=== PATIENT | male | born 1950 | race Caucasian/White ===

== ENCOUNTER 2018-04-05 10:56 | Inpatient (IN) | payer MEDICARE ==
[2018-04-05] VITALS (12 sets, daily range): BP systolic 81–178; BP diastolic 61–112; PULSE 63–98; RESP 14–15; TEMP 96.6–97.9; O2SAT 97–100
[~2018-04-05] VITALS: Ht 180.3 cm; Wt 100.1 kg
[2018-04-05 11:18] LABS: AUTOMATED NEUTROPHIL # 7.6 TH/MM3 (1.8-7.7); BASOPHIL # 0.1 TH/MM3 (0-0.2); BASOPHIL % 0.8 % (0.0-2.0); EOSINOPHIL # 0.5 TH/MM3 (0-0.4); EOSINOPHIL % 3.3 % (0.0-4.0); HEMATOCRIT 47.2 % (39.0-51.0); LYMPH % 33.4 % (9.0-44.0); LYMPHOCYTE # 4.6 TH/MM3 (1.0-4.8); MEAN CELL VOLUME 87.2 FL (80.0-100.0); MEAN CORPUSCULAR HEMOGLOBIN 29.5 PG (27.0-34.0); MEAN CORPUSCULAR HGB CONC 33.8 % (32.0-36.0); MEAN PLATELET VOLUME 7.1 FL (7.0-11.0); MONO % 7.7 % (0.0-8.0); MONOCYTE # 1.1 TH/MM3 (0-0.9); NEUT % 54.8 % (16.0-70.0); PLATELET COUNT 416 TH/MM3 (150-450); RED BLOOD COUNT 5.41 MIL/MM3 (4.50-5.90); RED CELL DISTRIBUTION WIDTH 13.4 % (11.6-17.2); WHITE BLOOD COUNT 13.8 TH/MM3 (4.0-11.0)
[2018-04-05 11:26] LABS: INTERNATIONAL NORMALIZED RATIO 1.2 RATIO; PROTHROMBIN TIME - PATIENT 12.5 SEC (9.8-11.6)
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
[2018-04-05] MEDS ORDERED: IOHEXOL 350 MG/ML 10 ML VIAL (for RAD DIAG) IVCONTRAST ONE (11:29)
[2018-04-05] MEDS ORDERED: Post-op Orders (for Pharmacy) XX ONE (11:30)
[2018-04-05] MEDS ORDERED: fentaNYL DRIP 250 ML IV PRN (11:30)
[2018-04-05] MEDS ORDERED: NALOXONE HCL 0.4 MG/ML AMP IV PUSH PRN (11:30)
[2018-04-05] MEDS ORDERED: SODIUM CHLORIDE 0.9% FLUSH 10 ML FLUSH IV FLUSH PRN (11:30)
[2018-04-05] MEDS ORDERED: PROPOFOL 1000 MG/100 ML INJ 100 ML IV PRN (11:30)
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
[2018-04-05] MEDS ORDERED: METOPROLOL TARTRATE 5 MG/5 ML VIAL ONE (12:22)
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
[2018-04-05] MEDS ORDERED: 3% SALINE INJ 500 ML IV SCH (13:45)
[2018-04-05] MEDS ORDERED: METOPROLOL TARTRATE 5 MG/5 ML VIAL IV PUSH SCH (14:00)
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
[2018-04-05] MEDS ORDERED: METOPROLOL TARTRATE 5 MG/5 ML VIAL IV PUSH ONE (14:30)
[2018-04-05] MEDS: PANTOPRAZOLE SODIUM 40 MG VIAL IV PUSH SCH (14:59)
[2018-04-05] MEDS: PROPOFOL 1000 MG/100 ML INJ 100 ML IV PRN ×2 (14:59→20:45)
[2018-04-05] MEDS: SODIUM CHLOR 0.9% 1000 ML INJ 1,000 ML IV SCH ×2 (15:00→21:47)
[2018-04-05] MEDS: levETIRAcetam INJ 500 MG in SODIUM CHLORIDE 0.9% INJ 100 ML IV SCH ×2 (15:00→21:48)
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
--- NOTE | 2018-04-05 15:20 | RADRPT ---
EXAM DATE: 04/05/2018 3:02 PM EDT AGE/SEX: 68 years / Male INDICATIONS: Post central line placement. CLINICAL DATA: This is the patient's subsequent encounter. Patient reports that signs and symptoms h ave been present for 1 day and indicates a pain score of Nonresponsive. MEDICAL/SURGICAL HISTORY: Non-responsive. Non-responsive. COMPARISON: [facility] – [place], CHEST SINGLE AP, 04/05/2018. . FINDINGS: Endotracheal tubes in good position. The nasogastric tubes in good position. There is a new left subc lavian central line. The tip of the line is misdirected and projects up over the left neck. No pneumothorax is identified. The lungs are clear. The visualized bony structures are grossly intact. CONCLUSION: The left subclavian line is misdirected and projects up over the left neck. The tip is likely within the left internal jugular vein. Electronically signed by: Grey Castaneda MD 04/05/2018 3:19 PM EDT
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
[2018-04-05] MEDS: NOREPINEPHRINE INJ 4 MG in SODIUM CHLOR 0.9% 250 ML INJ 250 ML IV PRN (18:00)
[2018-04-05] MEDS ORDERED: NOREPINEPHRINE 4 MG/4 ML AMP ONE (18:51)
[2018-04-05 18:58] LABS: HEMATOCRIT 33.6 % (39.0-51.0); HEMOGLOBIN 11.5 GM/DL (13.0-17.0)
[2018-04-05] MEDS ORDERED: SODIUM CHLOR 0.9% 1000 ML INJ 2,000 ML IV ONE (19:00)
[2018-04-05] MEDS: CHLORHEXIDINE 0.12% (ORAL KIT) 15 ML CUP OROPHARYNG SCH (20:47)
--- NOTE | 2018-04-05 21:37 | RADRPT ---
EXAM DATE: 04/05/2018 9:16 PM EDT AGE/SEX: 68 years / Male INDICATIONS: Mental status change. CLINICAL DATA: This is the patient's initial encounter. Patient reports that signs and symptoms have been present for 1 day and indicates a pain score of Nonresponsive. MEDICAL/SURGICAL HISTORY: None. None. RADIATION DOSE: 52.38 CTDI (mGy) COMPARISON: [facility] – [place], CT BRAIN W/O CONTRAST, 04/05/2018. . TECHNIQUE: CT of the head without contrast. Using automated exposure control and adjustment of the mA and/or kV according to patient size, radiation dose was kept as low as reasonably achievable to ob tain optimal diagnostic quality images. DICOM format image data is available electronically for revi ew and comparison. FINDINGS: There is a fracture of the right parietal bone and right occipital bone as well as a mildly displaced fracture of the right temporal bone with fluid or hemorrhage in the middle ear cavity. Fracture exte nds anteriorly into right maxilla. There is fluid in the sphenoid sinus and right maxillary sinus. There is scattered subarachnoid hemorrhage over both convexities, increased slightly on the right exa m from earlier today. Subcentimeter hemorrhagic contusions again seen in both temporal lobes and arou nd the left sylvian fissure. Subdural fluid anteriorly measures up to about 7 mm in thickness which i s minimally increased from exam earlier today. There is no significant mass effect or midline shift. Right frontal pressure monitor present. CONCLUSION: 1. Slight increase in subarachnoid hemorrhage over the right convexity. Small hemorrhagic contusions bilaterally as above. Slight increase in anterior subdural fluid. No significant mass effect or shif t. Fractures as above. Electronically signed by: Han Lane MD 04/05/2018 9:36 PM EDT
[2018-04-05] MEDS: SODIUM CHLORIDE 0.9% FLUSH 10 ML FLUSH IV FLUSH SCH (21:48)
[2018-04-06] VITALS (17 sets, daily range): BP systolic 91–127; BP diastolic 57–71; PULSE 51–102; RESP 14–18; TEMP 96–98.5; O2SAT 99–100
[2018-04-06] MEDS: PROPOFOL 1000 MG/100 ML INJ 100 ML IV PRN ×6 (00:36→20:36)
[2018-04-06] MEDS ORDERED: SODIUM CHLORIDE 23.4% INJ 240 MEQ in SYRINGE/BAG 1 EA IV ONE ×2 (02:00→09:45)
[2018-04-06] MEDS: NOREPINEPHRINE INJ 4 MG in SODIUM CHLOR 0.9% 250 ML INJ 250 ML IV PRN ×2 (04:37→12:48)
[2018-04-06] MEDS: fentaNYL DRIP 250 ML IV PRN ×2 (06:15→16:31)
[2018-04-06 06:33] LABS: AUTOMATED NEUTROPHIL # 11.3 TH/MM3 (1.8-7.7); BASOPHIL % 0.1 % (0.0-2.0); EOSINOPHIL % 0.3 % (0.0-4.0); HEMATOCRIT 33.6 % (39.0-51.0); HEMOGLOBIN 11.2 GM/DL (13.0-17.0); LYMPH % 9.6 % (9.0-44.0); LYMPHOCYTE # 1.3 TH/MM3 (1.0-4.8); MEAN CELL VOLUME 88.3 FL (80.0-100.0); MEAN CORPUSCULAR HEMOGLOBIN 29.4 PG (27.0-34.0); MEAN CORPUSCULAR HGB CONC 33.4 % (32.0-36.0); MEAN PLATELET VOLUME 7.2 FL (7.0-11.0); MONO % 5.6 % (0.0-8.0); MONOCYTE # 0.7 TH/MM3 (0-0.9); NEUT % 84.4 % (16.0-70.0); PLATELET COUNT 237 TH/MM3 (150-450); RED BLOOD COUNT 3.81 MIL/MM3 (4.50-5.90); RED CELL DISTRIBUTION WIDTH 13.5 % (11.6-17.2); WHITE BLOOD COUNT 13.4 TH/MM3 (4.0-11.0)
[2018-04-06 07:16] LABS: ALBUMIN 2.5 GM/DL (3.4-5.0); BICARBONATE 19.4 MEQ/L (21.0-32.0); CREATININE 1.41 MG/DL (0.60-1.30); DIRECT BILIRUBIN ADULT 0.5 MG/DL (0.0-0.2); INDIRECT BILIRUBIN 1.8 MG/DL (0.0-0.8); TOTAL BILIRUBIN ADULT 2.3 MG/DL (0.2-1.0)
[2018-04-06 07:29] LABS: CALCIUM 7.2 MG/DL (8.5-10.1); CALCIUM-PROTEIN CORRECTED 8.4 MG/DL (8.5-10.1); TOTAL PROTEIN 4.9 GM/DL (6.4-8.2)
[2018-04-06] MEDS ORDERED: SENNOSIDES 8.6 MG TAB PO PRN (08:00)
[2018-04-06] MEDS ORDERED: BISACODYL 10 MG SUPP RECTAL PRN (08:00)
[2018-04-06] MEDS ORDERED: LACTULOSE SYRUP 20 GM/30 ML CUP PO PRN (08:00)
[2018-04-06] MEDS: SODIUM CHLOR 0.9% 1000 ML INJ 1,000 ML IV SCH ×2 (08:19→17:26)
[2018-04-06] MEDS: CHLORHEXIDINE 0.12% (ORAL KIT) 15 ML CUP OROPHARYNG SCH ×2 (08:19→20:00)
[2018-04-06] MEDS: RESP: ALBUTEROL 2.5 MG/IPRATROPIUM 0.5 MG NEB (SCH) NEB ×3 (08:46→22:00)
[2018-04-06] MEDS: SODIUM CHLORIDE 0.9% FLUSH 10 ML FLUSH IV FLUSH SCH ×2 (09:00→21:00)
[2018-04-06] MEDS: levETIRAcetam INJ 500 MG in SODIUM CHLORIDE 0.9% INJ 100 ML IV SCH ×2 (09:29→20:36)
[2018-04-06] MEDS: DOCUSATE SODIUM 50 MG/SENNA 8.6 MG TAB PO SCH ×2 (09:29→20:36)
[2018-04-06] MEDS: MAGNESIUM HYDROXIDE SUSP 30 ML CUP PO SCH ×2 (09:29→20:36)
[2018-04-06] MEDS: PANTOPRAZOLE SODIUM 40 MG VIAL IV PUSH SCH (12:26)
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
[2018-04-06] MEDS ORDERED: 3% SALINE INJ 500 ML IV SCH (13:45)
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
[2018-04-06] MEDS ORDERED: MIDAZOLAM HCL 5 MG/ML VIAL (1 ML) ONE (16:28)
[2018-04-06] MEDS ORDERED: MIDAZOLAM HCL 5 MG/ML VIAL (1 ML) IV PUSH ONE (17:45)
[2018-04-06] MEDS: MIDAZOLAM 50 MG/NS 50 ML DRIP Premix IV PRN ×2 (17:51→21:30)
--- NOTE | 2018-04-06 22:24 | PD.OP ---
Operative Report Date of Surgery: Apr 06, 2018 Preoperative Diagnosis: (1) Traumatic brain injury Traumatic brain injury Postoperative Diagnosis: (1) Traumatic brain injury Traumatic brain injury Procedure: Right frontal twist drill for ventriculostomy placement Anesthesia: Intravenous sedation 1% Xylocaine local anesthetic Surgeon: Isaac Gibbs Ceramic Painter(s): None Operation and Findings: Indications: Traumatic brain injury with increasing intracranial pressure The procedure was performed in the surgical intensive care unit. The procedure, risks, and possible complications were fully explained prior to the procedure and consent obtained and witnessed. Appropriate timeout procedure was performed with all personnel present and in agreement The patient was placed in supine position with the head and neck in neutral position and the head of the bed elevated approximately 20. The right frontal region was shaved with clippers and sterilely prepped and draped. One percent Xylocaine without epinephrine was used for local infiltration over the small incision site which was made approximately 9-10 cm above the right supraorbital rim, approximately 3-1/2 to 4 cm lateral to the midline, in the mid pupillary line just anterior to the coronal suture. The hand drill was used to make a single twist drill opening in the cranium and the dura was perforated with the trocar. The Codman Bactiseal ventriculostomy catheter was advanced to a depth of 6-7 cm intracranial in a single pass with good return of spinal fluid. Opening pressure was 20 centimeter water The catheter was tunneled to the posterior frontal region with a trocar and secured to the skin with 3-0 nylon suture which was also used to close the small incision. A sterile bactericidal dressing was applied The catheter was connected to the drainage reservoir, and there was good drainage of fluid. The patient's neurologic exam remained stable following the procedure No specimen was sent There was no significant bleeding Isaac Gibbs MD Apr 06, 2018 22:24
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
--- NOTE | 2018-04-06 22:45 | PD.OP ---
Operative Report Date of Surgery: Apr 05, 2018 Preoperative Diagnosis: (1) Traumatic brain injury (2) Occipital scalp laceration Traumatic brain injury Left parieto-occipital scalp laceration Postoperative Diagnosis: (1) Traumatic brain injury (2) Occipital scalp laceration Traumatic brain injury Left parieto-occipital scalp laceration Procedure: 1. Right frontal twist drill for intracranial pressure monitor placement Repair greater than 10 cm right parietal-occipital scalp laceration Anesthesia: Intravenous sedation 1% Xylocaine local anesthetic Surgeon: Isaac Gibbs Puncher And Fastener(s): None Operation and Findings: The procedure was performed in the surgical intensive care unit. Appropriate timeout procedure was performed with all personnel present and in agreement The patient was given intravenous sedation during the procedure. The head of the bed was elevated 20 with the head and neck in neutral position. The right frontal area was shaved with clippers and sterilely prepped and draped. 1% Xylocaine with epinephrine was used for local infiltration over the small incision site which was made in the right frontal region approximately 1 cm anterior to the coronal suture in the mid pupillary line and carried sharply down to the cranium. The hand drill was used to place a single twist drill opening in the cranium and the dura was perforated with the 18-gauge spinal needle. The ICP bolt was secured to the cranium. The transducer was zeroed and placed intracranially and secured to the bolt. The patient's initial ICP was less than 10 mm water with good waveform. A sterile dressing was applied There is no significant bleeding Next, the parieto-occipital scalp laceration was cleaned of any debris and irrigated with saline irrigation and the surrounding scalp cleaned with Betadine. The laceration extended to the periosteum near the central part of the laceration. No cerebrospinal fluid draining was noted. The laceration was repaired with piyush. The patient's neurologic exam remained stable following the procedure. Isaac Gibbs MD Apr 06, 2018 22:45
[2018-04-07] VITALS (19 sets, daily range): BP systolic 111–129; BP diastolic 51–69; PULSE 71–97; RESP 18; TEMP 97.5–99.7; O2SAT 98–100
[2018-04-07] MEDS: PROPOFOL 1000 MG/100 ML INJ 100 ML IV PRN ×7 (00:34→21:33)
[2018-04-07] MEDS: NOREPINEPHRINE INJ 4 MG in SODIUM CHLOR 0.9% 250 ML INJ 250 ML IV PRN ×3 (00:51→21:23)
[2018-04-07] MEDS: MIDAZOLAM 50 MG/NS 50 ML DRIP Premix IV PRN ×5 (02:05→20:44)
[2018-04-07] MEDS: fentaNYL DRIP 250 ML IV PRN ×3 (03:34→22:17)
[2018-04-07] MEDS: RESP: ALBUTEROL 2.5 MG/IPRATROPIUM 0.5 MG NEB (SCH) NEB ×4 (04:00→20:25)
[2018-04-07] MEDS: SODIUM CHLOR 0.9% 1000 ML INJ 1,000 ML IV SCH (05:05)
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
[2018-04-07 05:39] LABS: AUTOMATED NEUTROPHIL # 10.5 TH/MM3 (1.8-7.7); BASOPHIL % 0.1 % (0.0-2.0); EOSINOPHIL % 0.2 % (0.0-4.0); HEMATOCRIT 28.3 % (39.0-51.0); HEMOGLOBIN 9.5 GM/DL (13.0-17.0); LYMPH % 8.4 % (9.0-44.0); MEAN CELL VOLUME 89.2 FL (80.0-100.0); MEAN CORPUSCULAR HGB CONC 33.7 % (32.0-36.0); MEAN PLATELET VOLUME 7.7 FL (7.0-11.0); MONO % 5.1 % (0.0-8.0); MONOCYTE # 0.6 TH/MM3 (0-0.9); NEUT % 86.2 % (16.0-70.0); PLATELET COUNT 195 TH/MM3 (150-450); RED BLOOD COUNT 3.17 MIL/MM3 (4.50-5.90); RED CELL DISTRIBUTION WIDTH 14.2 % (11.6-17.2); WHITE BLOOD COUNT 12.2 TH/MM3 (4.0-11.0)
[2018-04-07 05:59] LABS: ALBUMIN 2.2 GM/DL (3.4-5.0); BICARBONATE 17.7 MEQ/L (21.0-32.0); CALCIUM 7.1 MG/DL (8.5-10.1); CALCIUM-PROTEIN CORRECTED 8.4 MG/DL (8.5-10.1); CREATININE 1.19 MG/DL (0.60-1.30); TOTAL BILIRUBIN ADULT 1.4 MG/DL (0.2-1.0); TOTAL PROTEIN 4.8 GM/DL (6.4-8.2)
[2018-04-07] MEDS: levETIRAcetam INJ 500 MG in SODIUM CHLORIDE 0.9% INJ 100 ML IV SCH ×2 (07:57→20:41)
[2018-04-07] MEDS: CHLORHEXIDINE 0.12% (ORAL KIT) 15 ML CUP OROPHARYNG SCH ×2 (07:57→20:42)
[2018-04-07] MEDS: MAGNESIUM HYDROXIDE SUSP 30 ML CUP PO SCH ×2 (07:57→20:42)
[2018-04-07] MEDS: SODIUM CHLORIDE 0.9% FLUSH 10 ML FLUSH IV FLUSH SCH ×2 (07:58→20:42)
[2018-04-07] MEDS: DOCUSATE SODIUM 50 MG/SENNA 8.6 MG TAB PO SCH ×2 (07:58→20:42)
[2018-04-07] MEDS: SODIUM CHLOR 0.45% 1000 ML INJ 1,000 ML IV SCH ×2 (09:45→23:12)
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
--- NOTE | 2018-04-07 10:33 | OTSOAPIP ---
TIME SESSION COMPLETED: AM TREATMENT TIME: 0 MINS. CHART REVIEWED. LATE ENTRY 04/06/18 INTERDISCIPLINARY COMMUNICATION: ORDERS RECEIVED, CHART REVIEWED. NURSING HELD OCCUPATIONAL THERAPY DUE TO HIGH ICP. WILL CHECK BACK TOMORROW Therapist: ARNALDO PATRICK OTR/Linus Signature on file
[2018-04-07] MEDS: PANTOPRAZOLE SODIUM 40 MG VIAL IV PUSH SCH (12:04)
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
--- NOTE | 2018-04-07 16:49 | OTSOAPIP ---
TIME SESSION COMPLETED: 1200 TREATMENT TIME: 0 MINS. CHART REVIEWED. ATTEMPTED TO SEE FOR OT HOWEVER NURSE REQUESTED TO DEFER ANY STIMULATION DUE TO ICP. Therapist: BLAYNE LIM OT/L Signature on file
[2018-04-08] VITALS (19 sets, daily range): BP systolic 103–124; BP diastolic 50–85; PULSE 86–96; RESP 18; TEMP 97.9–98.8; O2SAT 94–100
[2018-04-08] MEDS: PROPOFOL 1000 MG/100 ML INJ 100 ML IV PRN ×7 (01:21→23:33)
[2018-04-08] MEDS: MIDAZOLAM 50 MG/NS 50 ML DRIP Premix IV PRN ×5 (02:00→19:49)
[2018-04-08] MEDS: RESP: ALBUTEROL 2.5 MG/IPRATROPIUM 0.5 MG NEB (SCH) NEB ×4 (03:53→20:03)
[2018-04-08 06:21] LABS: AUTOMATED NEUTROPHIL # 9.8 TH/MM3 (1.8-7.7); BASOPHIL % 0.3 % (0.0-2.0); EOSINOPHIL # 0.2 TH/MM3 (0-0.4); EOSINOPHIL % 1.7 % (0.0-4.0); HEMATOCRIT 25.1 % (39.0-51.0); HEMOGLOBIN 8.4 GM/DL (13.0-17.0); LYMPH % 8.2 % (9.0-44.0); LYMPHOCYTE # 0.9 TH/MM3 (1.0-4.8); MEAN CELL VOLUME 88.4 FL (80.0-100.0); MEAN CORPUSCULAR HEMOGLOBIN 29.8 PG (27.0-34.0); MEAN CORPUSCULAR HGB CONC 33.7 % (32.0-36.0); MEAN PLATELET VOLUME 7.5 FL (7.0-11.0); MONO % 5.2 % (0.0-8.0); MONOCYTE # 0.6 TH/MM3 (0-0.9); NEUT % 84.6 % (16.0-70.0); PLATELET COUNT 165 TH/MM3 (150-450); RED BLOOD COUNT 2.84 MIL/MM3 (4.50-5.90); RED CELL DISTRIBUTION WIDTH 14.6 % (11.6-17.2); WHITE BLOOD COUNT 11.6 TH/MM3 (4.0-11.0)
--- NOTE | 2018-04-08 06:30 | RADRPT ---
EXAM DATE: 04/08/2018 5:29 AM EDT AGE/SEX: 68 years / Male INDICATIONS: Short of breath. CLINICAL DATA: This is the patient's initial encounter. Patient reports that signs and symptoms have been present for 4 - 6 days and indicates a pain score of Nonresponsive. MEDICAL/SURGICAL HISTORY: Non-responsive. Non-responsive. COMPARISON: C, CHEST SINGLE AP, 04/07/2018. . FINDINGS: The endotracheal tube, nasogastric tube are both in good position. There is a moderate size right ple ural effusion. Mild perihilar vascular congestion. No visible pneumothorax. CONCLUSION: Persistent right hemidiaphragm suspicious for pleural effusion. ET tube in good position. Electronically signed by: Jon Coats MD 04/08/2018 6:29 AM EDT
[2018-04-08 06:48] LABS: ALBUMIN 1.9 GM/DL (3.4-5.0); BICARBONATE 20.4 MEQ/L (21.0-32.0); CREATININE 1.14 MG/DL (0.60-1.30)
[2018-04-08 06:52] LABS: CALCIUM-PROTEIN CORRECTED 8.2 MG/DL (8.5-10.1); TOTAL BILIRUBIN ADULT 1.3 MG/DL (0.2-1.0); TOTAL PROTEIN 4.8 GM/DL (6.4-8.2)
[2018-04-08] MEDS: CHLORHEXIDINE 0.12% (ORAL KIT) 15 ML CUP OROPHARYNG SCH ×2 (08:16→21:39)
[2018-04-08] MEDS: levETIRAcetam INJ 500 MG in SODIUM CHLORIDE 0.9% INJ 100 ML IV SCH ×2 (08:16→21:43)
[2018-04-08] MEDS: SODIUM CHLORIDE 0.9% FLUSH 10 ML FLUSH IV FLUSH SCH ×2 (08:16→21:40)
[2018-04-08] MEDS: MAGNESIUM HYDROXIDE SUSP 30 ML CUP PO SCH ×2 (08:16→21:43)
[2018-04-08] MEDS: DOCUSATE SODIUM 50 MG/SENNA 8.6 MG TAB PO SCH ×2 (08:17→21:43)
[2018-04-08] MEDS: fentaNYL DRIP 250 ML IV PRN ×2 (08:17→18:00)
[2018-04-08] MEDS: NOREPINEPHRINE INJ 4 MG in SODIUM CHLOR 0.9% 250 ML INJ 250 ML IV PRN ×3 (08:18→22:02)
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
[2018-04-08] MEDS ORDERED: FUROSEMIDE 40 MG/4 ML VIAL IV PUSH ONE (09:30)
[2018-04-08] MEDS: DEXTROSE 5% IN WATE 1000ML INJ 1,000 ML IV SCH (09:30)
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
[2018-04-08] MEDS ORDERED: CHLORHEXIDINE GLUCONATE 2 % 1 PACK (2 CLOTHS)(extra cloths) TOPICAL PRN (12:30)
[2018-04-08] MEDS: PANTOPRAZOLE SODIUM 40 MG VIAL IV PUSH SCH (12:32)
[2018-04-08] MEDS ORDERED: ICU - POTASSIUM PHOSPHATE 30 MMOL/NS 250 ML IV PRN ×2 (13:00)
[2018-04-08] MEDS ORDERED: ICU - POTASSIUM CHLORIDE/AQUEOUS SOLN 20 MEQ/100 ML IVPB IV PRN (13:00)
[2018-04-08] MEDS ORDERED: ICU - MAGNESIUM SULFATE 4 GM/NS 100 ML IV PRN ×2 (13:00)
[2018-04-08] MEDS ORDERED: POTASSIUM CHLORIDE 25 MEQ EFFERVESCENT TAB PO PRN (13:00)
[2018-04-08] MEDS ORDERED: ICU - MAGNESIUM SULFATE 2 GM/NS 100 ML IV PRN ×2 (13:00)
[2018-04-08] MEDS ORDERED: ICU - MAGNESIUM OXIDE 400 MG TAB PO PRN (13:00)
[2018-04-08] MEDS ORDERED: ICU - D/C ICU ELECTROLYTE ORDERS PRN (13:00)
[2018-04-08] MEDS ORDERED: ICU - POTASSIUM PHOSPHATE MONOBASIC 500 MG TAB PO PRN (13:00)
[2018-04-08] MEDS ORDERED: ICU - SODIUM PHOSPHATE 30 MMOL/NS 250 ML IV PRN ×2 (13:00)
[2018-04-08] MEDS ORDERED: ICU - CALL ORDERING PHYSICIAN PRN (13:00)
[2018-04-08] MEDS: ICU - POTASSIUM CHLORIDE/AQUEOUS SOLN 40 MEQ/100 ML IVPB IV PRN ×2 (13:08→15:30)
--- NOTE | 2018-04-08 13:31 | RADRPT ---
EXAM DATE: 04/08/2018 11:27 AM EDT AGE/SEX: 68 years / Male INDICATIONS: Subarachnoid hemorrhage. CLINICAL DATA: This is the patient's subsequent encounter. Patient reports that signs and symptoms h ave been present for 3 days and indicates a pain score of 2/10. MEDICAL/SURGICAL HISTORY: None. None. RADIATION DOSE: 66.63 CTDI (mGy) [place] [facility] [place] [facility] [place]05/[place]. . TECHNIQUE: CT of the head without contrast. Using automated exposure control and adjustment of the mA and/or kV according to patient size, radiation dose was kept as low as reasonably achievable to ob tain optimal diagnostic quality images. DICOM format image data is available electronically for revi ew and comparison. FINDINGS: Cerebrum: There is a pressure monitor in place from the right frontal approach. There also appears t o be shunt tubing in place from the right frontal approach. The tip of this tube appears to be in the right frontal white matter. It does not extend into the ventricular system. The lateral ventricles a re narrowed but still open. The basal cisterns are narrowed but still fairly open. This appearance is unchanged. There is minimal residual subarachnoid hemorrhage seen at the left parietal lobe and arou nd the frontal lobes. This appears less prominent. There are focal areas of low density seen in the a nterior left frontal lobe and the lateral temporal lobes bilaterally likely related to contusions. Th ere does appear to be a bright focus of density seen in the anterior aspect of the temporal horn of t he right lateral ventricle likely related to a small area intraventricular hemorrhage. This is unchan ged. New areas of hemorrhage are not seen. Low density subdural collections are seen over the frontal lobes bilaterally. There is some air within the anterior right frontal lobe. Posterior Fossa: There is increased density along the posterior right posterior fossa. This could be related to a subdural or epidural hemorrhage in this region. This is not an unexpected finding given the right-sided skull fractures. This is unchanged. The cerebellum and brainstem are intact. The 4t h ventricle is midline. The cerebellopontine angle is unremarkable. Extracranial: The visualized portion of the orbits is intact. There is increased density in the sinu ses. Skull: Again noted is fracturing of the right occipital bone, right middle cranial fossa floor and r ight petrous temporal bone. CONCLUSION: 1. Stable to less prominent subarachnoid hemorrhage. 2. Stable small interventricular hemorrhage at the temporal horn of the right lateral ventricle. 3. Focal areas of contusion in the anterior left frontal lobe and the temporal lobes bilaterally. 4. Stable extra-axial hemorrhage in the posterior aspect of the right posterior cranial fossa. 5. What appears to be a ventriculostomy tube is now in place. The tip appears to overlie the right f rontal white matter. 6. The ventricles and basal cisterns are open but narrowed. This appearance is unchanged. Electronically signed by: Michel Schwarz MD 04/08/2018 1:30 PM EDT
[2018-04-08] MEDS: MUPIROCIN 2% OINT 1 APPLIC/GM SYR NASAL SCH (21:43)
[2018-04-09] VITALS (17 sets, daily range): BP systolic 97–116; BP diastolic 55–66; PULSE 78–96; RESP 20–22; TEMP 97.2–98.8; O2SAT 93–100
[2018-04-09] MEDS: MIDAZOLAM 50 MG/NS 50 ML DRIP Premix IV PRN ×6 (00:37→21:16)
[2018-04-09] MEDS ORDERED: DEXTROSE 5% IN WATE 1000ML INJ 1,000 ML IV ONE (02:10)
[2018-04-09] MEDS: PROPOFOL 1000 MG/100 ML INJ 100 ML IV PRN ×5 (02:36→22:00)
--- NOTE | 2018-04-09 02:46 | RADRPT ---
EXAM DATE: 04/09/2018 2:40 AM EDT AGE/SEX: 68 years / Male INDICATIONS: Shortness of breath and pulmonary infiltrates. CLINICAL DATA: This is the patient's subsequent encounter. Patient reports that signs and symptoms h ave been present for 4 - 6 days and indicates a pain score of Nonresponsive. MEDICAL/SURGICAL HISTORY: None. None. [place] [facility] [place]. . FINDINGS: A single AP portable supine view of the chest was obtained and again demonstrates the endotracheal tu be in place with the tip approximately 3 to 4 cm above the leo. The nasogastric tube is again note d seen coursing through the esophagus into the stomach. Hazy perihilar and bibasilar opacities are pr esent and appear mildly increased since the prior study. The heart size appears at the upper limits o f normal. Portions of the left hemidiaphragm are obscured. CONCLUSION: 1. Interval increase in opacity especially the right lung base which could indicate pneumonia or pu lmonary edema. 2. The patient remains intubated. Electronically signed by: Chip Weston MD 04/09/2018 2:45 AM EDT
[2018-04-09] MEDS: DEXTROSE 5% IN WATE 1000ML INJ 1,000 ML IV SCH (02:51)
[2018-04-09] MEDS: VANCOMYCIN 1,000 MG/NS 250 ML IV SCH ×4 (03:15→16:31)
[2018-04-09] MEDS: RESP: ALBUTEROL 2.5 MG/IPRATROPIUM 0.5 MG NEB (SCH) NEB ×4 (03:18→20:01)
[2018-04-09] MEDS: fentaNYL DRIP 250 ML IV PRN ×2 (03:27→08:34)
[2018-04-09] MEDS: CHLORHEXIDINE GLUCONATE 2 % 1 PACK (2 CLOTHS)(taper/protocol) TOPICAL SCH (04:00)
[2018-04-09] MEDS: PIPERACIL-TAZO 3.375 GM PREMIX 50 ML IV SCH ×4 (04:27→21:16)
[2018-04-09] MEDS: NOREPINEPHRINE INJ 4 MG in SODIUM CHLOR 0.9% 250 ML INJ 250 ML IV PRN ×3 (04:31→16:29)
[2018-04-09 06:09] LABS: AUTOMATED NEUTROPHIL # 6.4 TH/MM3 (1.8-7.7); BASOPHIL % 0.3 % (0.0-2.0); EOSINOPHIL # 0.2 TH/MM3 (0-0.4); EOSINOPHIL % 3.1 % (0.0-4.0); HEMATOCRIT 24.8 % (39.0-51.0); HEMOGLOBIN 8.3 GM/DL (13.0-17.0); LYMPH % 9.3 % (9.0-44.0); LYMPHOCYTE # 0.7 TH/MM3 (1.0-4.8); MEAN CELL VOLUME 88.9 FL (80.0-100.0); MEAN CORPUSCULAR HEMOGLOBIN 29.6 PG (27.0-34.0); MEAN CORPUSCULAR HGB CONC 33.3 % (32.0-36.0); MEAN PLATELET VOLUME 7.7 FL (7.0-11.0); MONO % 3.5 % (0.0-8.0); MONOCYTE # 0.3 TH/MM3 (0-0.9); NEUT % 83.8 % (16.0-70.0); PLATELET COUNT 169 TH/MM3 (150-450); RED BLOOD COUNT 2.79 MIL/MM3 (4.50-5.90); RED CELL DISTRIBUTION WIDTH 14.7 % (11.6-17.2); WHITE BLOOD COUNT 7.7 TH/MM3 (4.0-11.0)
[2018-04-09 06:37] LABS: ALBUMIN 1.6 GM/DL (3.4-5.0); BICARBONATE 23.1 MEQ/L (21.0-32.0); CALCIUM 6.5 MG/DL (8.5-10.1); CALCIUM-PROTEIN CORRECTED 7.8 MG/DL (8.5-10.1); CREATININE 1.29 MG/DL (0.60-1.30); TOTAL BILIRUBIN ADULT 1.6 MG/DL (0.2-1.0); TOTAL PROTEIN 4.6 GM/DL (6.4-8.2)
[2018-04-09] MEDS: ICU - POTASSIUM CHLORIDE/AQUEOUS SOLN 40 MEQ/100 ML IVPB IV PRN ×2 (07:01→09:53)
[2018-04-09] MEDS: CHLORHEXIDINE 0.12% (ORAL KIT) 15 ML CUP OROPHARYNG SCH ×2 (08:00→20:00)
--- NOTE | 2018-04-09 08:03 | HHI.PR ---
Neuropsych Emotional Emotional: UnabletoAssess: Emotional, Anxious/Fearful, Depressed/Sad, Hostile/ Resentful, Irritable/Angry/Frustrate, Labile, Constricted/Blunted Behavior Behavior: Intact: Impulsive/Agitated, Unable to Asses: Behavior, Coping/ Acceptance, Cooperative w/ Treatment, Motivation, Frustration Tolerance/[place], Suicidal/Homicidal Risk Cognitive Cognitive: Unable to Asses: Cognitive, Attention/Concentration, Confused/ Orientation, Insight/Awareness, Judgement/Problem-Solving, Memory Psychosocial Psychosocial: Unable to Asses: Psychosocial, Family/Other Adjustment, Realistic Expectation, Self-Esteem/Confidence Progress Notes/Response to Tx Contents of Sessions: Adjustment, Level of Consciousness Time with Patient: 30 minutes Premorbid psychological status Premorbid Cognitive, Emotional and Behavioral Status: Unable to Assess The patient is believed to have high school years of education and a solid work history prior to this injury. The patient has unknown psychiatric difficulties , as described above. Substance abuse history appears unremarkable. Behavioral Reactions of Patient and Family/Support System: Unstable. The patients family is experiencing ongoing issues of adjustment given the nature of the injury, and this aspect of recovery will require ongoing monitoring. Emotional/Behavioral Status of Patient and Family/Support System: Unable to Assess. Pertinent issues, if appropriate to this patients clinical care, are described in detail above. Maximizing acute care outcome It is recommended that the patient be monitored for emergent behavioral impulsivity as the medical condition evolves. This patients neuropathological challenges may limit his rehabilitation potential going forward, and these challenges will require specialized therapeutic skills to maximize outcome. Additionally, the patients family is experiencing ongoing issues of adjustment given the traumatic nature of the injury, and they will need ongoing psychological assistance. At this point in the recovery process, the patient does not have cognitive capacity as the patient is unable to understand a situation and its likely consequences, nor is he able to manipulate information rationally. Cognitive capacity will be assessed throughout the recovery process. Anticipated Problems Ongoing areas of concern will include behavioral impulsivity, lack of insight and judgment, which is expected to improve with time and treatment. Presently , the patient is critically ill. Given the severity of the patient's injuries it is my clinical opinion that this patient will be unable to return to any type of productive employment for at least one year, perhaps longer and likely never. This patient is not considered safe to discharge home without supervision. Treatment Plan This clinician will continue to follow with you throughout the course of this patients critical care treatment, and I will be available to meet with the patients family/support system to facilitate their understanding and the ongoing care of their family member. The goals of neuropsychological intervention shall be both educational and supportive to the family/support system as is deemed clinically appropriate. [place] Level: I:No response-total assistance Impression 68 year old male s/p severe TBI [facility] [facility] [place] Diagnosis: (1) Major neurocognitive disorder as late effect of traumatic brain injury without behavioral disturbance Progress Note Narrative PTD 4. The patient remains neurobehaviorally unchanged, with no agitation/ restlessness. He is [place]. His ICPs are fluctuating, and he will need trach /PEG. I will follow. Pete Chaudhry PhD Apr 09, 2018 8:03 am
[2018-04-09] MEDS: MAGNESIUM HYDROXIDE SUSP 30 ML CUP PO SCH ×2 (08:34→20:00)
[2018-04-09] MEDS: MUPIROCIN 2% OINT 1 APPLIC/GM SYR NASAL SCH ×2 (08:34→21:17)
[2018-04-09] MEDS: DOCUSATE SODIUM 50 MG/SENNA 8.6 MG TAB PO SCH ×2 (08:34→21:00)
[2018-04-09] MEDS: LACTULOSE SYRUP 20 GM/30 ML CUP PO SCH (08:35)
[2018-04-09] MEDS: SODIUM CHLORIDE 0.9% FLUSH 10 ML FLUSH IV FLUSH SCH ×2 (08:35→21:17)
[2018-04-09] MEDS: levETIRAcetam INJ 500 MG in SODIUM CHLORIDE 0.9% INJ 100 ML IV SCH ×2 (08:35→21:16)
[2018-04-09 09:03] LABS: BANDS 47 % (0-6); BASOPHILS 2 % (0-2); CORRECTED NUCLEATED RBC 1 /100 WBC (0-0); DOHLE BODIES PRESENT (NONE SEEN); LYMPHOCYTES 11 % (9-44); METAMYELOCYTES 2 % (0-1); MONOCYTES 3 % (0-8); NEUTROPHIL # MANUAL DIFF 6.2 TH/MM3 (1.8-7.7); NUCLEATED RED BLOOD CELL 1 (0-0); POLYS (SEG NEUTROPHILS) 32 % (16-70)
[2018-04-09 09:04] LABS: TOXIC GRANULATION 1+ (NORMAL)
[2018-04-09] MEDS ORDERED: SODIUM CHLOR 0.9% 250 ML INJ 250 ML IV ONE (09:30)
[2018-04-09] MEDS ORDERED: BISACODYL 10 MG SUPP RECTAL ONE (09:30)
[2018-04-09] MEDS: SODIUM CHLOR 0.45% 1000 ML INJ 1,000 ML IV SCH (10:00)
[2018-04-09] MEDS: PANTOPRAZOLE SODIUM 40 MG VIAL IV PUSH SCH (11:05)
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
[2018-04-10] VITALS (16 sets, daily range): BP systolic 94–126; BP diastolic 54–67; PULSE 75–105; RESP 22–24; TEMP 97.2–99.5; O2SAT 92–100
[2018-04-10] MEDS: SODIUM CHLOR 0.45% 1000 ML INJ 1,000 ML IV SCH (02:10)
[2018-04-10] MEDS: RESP: ALBUTEROL 2.5 MG/IPRATROPIUM 0.5 MG NEB (SCH) NEB ×2 (03:02→08:21)
[2018-04-10] MEDS: PIPERACIL-TAZO 3.375 GM PREMIX 50 ML IV SCH ×4 (03:42→23:00)
[2018-04-10] MEDS: MIDAZOLAM 50 MG/NS 50 ML DRIP Premix IV PRN ×2 (03:42→08:15)
[2018-04-10] MEDS: CHLORHEXIDINE GLUCONATE 2 % 1 PACK (2 CLOTHS)(taper/protocol) TOPICAL SCH (03:43)
[2018-04-10] MEDS: VANCOMYCIN 1,000 MG/NS 250 ML IV SCH ×4 (03:43→15:08)
[2018-04-10 04:18] LABS: AUTOMATED NEUTROPHIL # 8.7 TH/MM3 (1.8-7.7); BASOPHIL % 0.4 % (0.0-2.0); EOSINOPHIL # 0.5 TH/MM3 (0-0.4); EOSINOPHIL % 4.3 % (0.0-4.0); HEMATOCRIT 30.5 % (39.0-51.0); HEMOGLOBIN 10.5 GM/DL (13.0-17.0); LYMPH % 10.3 % (9.0-44.0); LYMPHOCYTE # 1.1 TH/MM3 (1.0-4.8); MEAN CELL VOLUME 86.9 FL (80.0-100.0); MEAN CORPUSCULAR HGB CONC 34.5 % (32.0-36.0); MEAN PLATELET VOLUME 7.5 FL (7.0-11.0); MONO % 4.5 % (0.0-8.0); MONOCYTE # 0.5 TH/MM3 (0-0.9); NEUT % 80.5 % (16.0-70.0); PLATELET COUNT 176 TH/MM3 (150-450); RED BLOOD COUNT 3.51 MIL/MM3 (4.50-5.90); RED CELL DISTRIBUTION WIDTH 14.9 % (11.6-17.2); WHITE BLOOD COUNT 10.8 TH/MM3 (4.0-11.0)
[2018-04-10 04:56] LABS: ALBUMIN 1.6 GM/DL (3.4-5.0); CALCIUM 6.7 MG/DL (8.5-10.1); CALCIUM-PROTEIN CORRECTED 7.8 MG/DL (8.5-10.1); CREATININE 1.28 MG/DL (0.60-1.30); MAGNESIUM 2.3 MG/DL (1.5-2.5)
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
[2018-04-10] MEDS: PROPOFOL 1000 MG/100 ML INJ 100 ML IV PRN ×2 (06:48→08:15)
[2018-04-10] MEDS: MAGNESIUM HYDROXIDE SUSP 30 ML CUP PO SCH ×2 (07:53→20:00)
[2018-04-10] MEDS: MUPIROCIN 2% OINT 1 APPLIC/GM SYR NASAL SCH ×2 (07:53→20:42)
[2018-04-10] MEDS: LACTULOSE SYRUP 20 GM/30 ML CUP PO SCH (07:53)
[2018-04-10] MEDS: DOCUSATE SODIUM 50 MG/SENNA 8.6 MG TAB PO SCH ×2 (07:53→20:42)
[2018-04-10] MEDS: CHLORHEXIDINE 0.12% (ORAL KIT) 15 ML CUP OROPHARYNG SCH ×2 (07:54→20:00)
[2018-04-10] MEDS: SODIUM CHLORIDE 0.9% FLUSH 10 ML FLUSH IV FLUSH SCH ×2 (07:54→20:42)
[2018-04-10] MEDS: NOREPINEPHRINE INJ 4 MG in SODIUM CHLOR 0.9% 250 ML INJ 250 ML IV PRN (08:00)
[2018-04-10] MEDS: levETIRAcetam INJ 500 MG in SODIUM CHLORIDE 0.9% INJ 100 ML IV SCH ×2 (08:16→20:41)
[2018-04-10 09:19] LABS: BANDS 26 % (0-6); CORRECTED NUCLEATED RBC 2 /100 WBC (0-0); LYMPHOCYTES 7 % (9-44); MONOCYTES 4 % (0-8); NEUTROPHIL # MANUAL DIFF 9.2 TH/MM3 (1.8-7.7); NUCLEATED RED BLOOD CELL 2 (0-0); POLYS (SEG NEUTROPHILS) 59 % (16-70)
[2018-04-10 09:21] LABS: TOXIC GRANULATION 1+ (NORMAL)
[2018-04-10 09:22] LABS: POLYCHROMASIA 2.6 % (0.0-1.9)
[2018-04-10] MEDS: FREE WATER G-TUBE SCH ×2 (11:50→18:00)
[2018-04-10] MEDS: PANTOPRAZOLE SODIUM 40 MG VIAL IV PUSH SCH (11:50)
[2018-04-10] MEDS: SODIUM CHLORIDE 23.4% INJ 38.5 MEQ in WATER STERILE FOR INJ 1,000 ML IV SCH (11:56)
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
[2018-04-10] MEDS ORDERED: ARTIFICIAL TEARS OPTH SOLN 15 ML BTL EACH EYE PRN (15:15)
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
[2018-04-10 18:53] LABS: BICARBONATE 25.4 MEQ/L (21.0-32.0); CALCIUM 7.2 MG/DL (8.5-10.1); CREATININE 1.35 MG/DL (0.60-1.30)
[2018-04-10 19:22] LABS: CALCIUM-PROTEIN CORRECTED 8.4 MG/DL (8.5-10.1); TOTAL PROTEIN 4.9 GM/DL (6.4-8.2)
[2018-04-10] MEDS: RESP: ALBUTEROL 2.5 MG/IPRATROPIUM 0.5 MG NEB (PRN) NEB ×2 (20:13→23:35)
[2018-04-10] MEDS: ICU - POTASSIUM CHLORIDE/AQUEOUS SOLN 40 MEQ/100 ML IVPB IV PRN (21:14)
[2018-04-11] VITALS (17 sets, daily range): BP systolic 94–132; BP diastolic 53–74; PULSE 112–130; RESP 22; TEMP 100.2–100.8; O2SAT 91–97
[2018-04-11] MEDS: RESP: ALBUTEROL 2.5 MG/IPRATROPIUM 0.5 MG NEB (PRN) NEB (03:28)
[2018-04-11] MEDS: SODIUM CHLORIDE 23.4% INJ 38.5 MEQ in WATER STERILE FOR INJ 1,000 ML IV SCH ×2 (03:50→09:21)
[2018-04-11] MEDS: CHLORHEXIDINE GLUCONATE 2 % 1 PACK (2 CLOTHS)(taper/protocol) TOPICAL SCH (04:00)
[2018-04-11] MEDS: VANCOMYCIN 1,000 MG/NS 250 ML IV SCH ×4 (04:00→16:18)
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
[2018-04-11] MEDS: PIPERACIL-TAZO 3.375 GM PREMIX 50 ML IV SCH ×4 (05:00→23:48)
[2018-04-11] MEDS: FREE WATER G-TUBE SCH ×5 (06:00→23:49)
[2018-04-11 06:03] LABS: ALBUMIN 1.4 GM/DL (3.4-5.0); BICARBONATE 24.8 MEQ/L (21.0-32.0); CALCIUM-PROTEIN CORRECTED 8.2 MG/DL (8.5-10.1); CREATININE 1.38 MG/DL (0.60-1.30); MAGNESIUM 2.7 MG/DL (1.5-2.5); TOTAL BILIRUBIN ADULT 3.3 MG/DL (0.2-1.0); TOTAL PROTEIN 4.9 GM/DL (6.4-8.2)
[2018-04-11 06:08] LABS: AUTOMATED NEUTROPHIL # 7.6 TH/MM3 (1.8-7.7); BASOPHIL % 0.4 % (0.0-2.0); EOSINOPHIL # 0.3 TH/MM3 (0-0.4); EOSINOPHIL % 3.6 % (0.0-4.0); HEMATOCRIT 29.1 % (39.0-51.0); LYMPH % 11.8 % (9.0-44.0); LYMPHOCYTE # 1.1 TH/MM3 (1.0-4.8); MEAN CELL VOLUME 86.8 FL (80.0-100.0); MEAN CORPUSCULAR HEMOGLOBIN 29.9 PG (27.0-34.0); MEAN CORPUSCULAR HGB CONC 34.5 % (32.0-36.0); MEAN PLATELET VOLUME 7.4 FL (7.0-11.0); MONO % 4.3 % (0.0-8.0); MONOCYTE # 0.4 TH/MM3 (0-0.9); NEUT % 79.9 % (16.0-70.0); PLATELET COUNT 142 TH/MM3 (150-450); RED BLOOD COUNT 3.35 MIL/MM3 (4.50-5.90); WHITE BLOOD COUNT 9.5 TH/MM3 (4.0-11.0)
[2018-04-11 08:14] LABS: ACANTHOCYTES OCC (NORMAL); BANDS 31 % (0-6); BASOPHILS 2 % (0-2); CORRECTED NUCLEATED RBC 1 /100 WBC (0-0); LYMPHOCYTES 9 % (9-44); METAMYELOCYTES 2 % (0-1); MONOCYTES 1 % (0-8); NEUTROPHIL # MANUAL DIFF 8.2 TH/MM3 (1.8-7.7); NUCLEATED RED BLOOD CELL 1 (0-0); POLYS (SEG NEUTROPHILS) 53 % (16-70); TOXIC GRANULATION 2+ (NORMAL)
[2018-04-11] MEDS: CHLORHEXIDINE 0.12% (ORAL KIT) 15 ML CUP OROPHARYNG SCH ×2 (09:02→20:27)
[2018-04-11] MEDS: DOCUSATE SODIUM 50 MG/SENNA 8.6 MG TAB PO SCH ×2 (09:02→20:27)
[2018-04-11] MEDS: levETIRAcetam INJ 500 MG in SODIUM CHLORIDE 0.9% INJ 100 ML IV SCH ×2 (09:02→20:27)
[2018-04-11] MEDS: MAGNESIUM HYDROXIDE SUSP 30 ML CUP PO SCH ×2 (09:02→20:27)
[2018-04-11] MEDS: LACTULOSE SYRUP 20 GM/30 ML CUP PO SCH (09:02)
[2018-04-11] MEDS: SODIUM CHLORIDE 0.9% FLUSH 10 ML FLUSH IV FLUSH SCH ×2 (09:03→20:27)
[2018-04-11] MEDS: MUPIROCIN 2% OINT 1 APPLIC/GM SYR NASAL SCH ×2 (09:04→20:27)
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
[2018-04-11] MEDS: PANTOPRAZOLE SODIUM 40 MG VIAL IV PUSH SCH (11:16)
[2018-04-11] MEDS ORDERED: ROCURONIUM INJ 50 MG/5 ML VIAL ONE (14:45)
--- NOTE | 2018-04-11 19:03 | RADRPT ---
EXAM DATE: 04/11/2018 6:58 PM EDT AGE/SEX: 68 years / Male INDICATIONS: Replacement of E-T Tube due to air leak. CLINICAL DATA: This is the patient's subsequent encounter. Patient reports that signs and symptoms h ave been present for 4 - 6 days and indicates a pain score of Nonresponsive. MEDICAL/SURGICAL HISTORY: None. None. COMPARISON: C, CHEST SINGLE AP, 04/11/2018. . FINDINGS: Endotracheal tube and nasogastric tube unchanged. Left subclavian line extends cephalad similar to ea rlier exam. Bilateral mostly basilar airspace disease and pleural effusions are relatively stable. CONCLUSION: Bilateral mostly basilar airspace disease and pleural effusions similar to earlier exam. Left subclav kirt line extends cephalad as noted previously. Endotracheal tube and nasogastric tube unchanged. Electronically signed by: Han Lane MD 04/11/2018 7:02 PM EDT
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
[2018-04-11] MEDS ORDERED: Vancomycin Consult Pharmacy 1 EA OTHER SCH (21:15)
[2018-04-11] MEDS ORDERED: PHARMACY ORDERED LAB ONE (22:15)
[2018-04-12] VITALS (19 sets, daily range): BP systolic 92–119; BP diastolic 58–72; PULSE 104–122; RESP 22; TEMP 100–101.1; O2SAT 91–99
[2018-04-12] MEDS: SODIUM CHLORIDE 23.4% INJ 38.5 MEQ in WATER STERILE FOR INJ 1,000 ML IV SCH ×2 (02:05→23:08)
[2018-04-12] MEDS ORDERED: PHARMACY ORDERED LAB ONE ×2 (03:45→15:45)
[2018-04-12] MEDS: VANCOMYCIN 1,000 MG/NS 250 ML IV SCH ×4 (04:51→16:00)
[2018-04-12] MEDS: CHLORHEXIDINE GLUCONATE 2 % 1 PACK (2 CLOTHS)(taper/protocol) TOPICAL SCH (04:51)
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
[2018-04-12] MEDS: PIPERACIL-TAZO 3.375 GM PREMIX 50 ML IV SCH ×4 (06:36→22:20)
[2018-04-12] MEDS: FREE WATER G-TUBE SCH ×3 (06:36→17:17)
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
[2018-04-12] MEDS: MAGNESIUM HYDROXIDE SUSP 30 ML CUP PO SCH ×2 (08:00→20:00)
[2018-04-12] MEDS: CHLORHEXIDINE 0.12% (ORAL KIT) 15 ML CUP OROPHARYNG SCH ×2 (08:00→20:00)
[2018-04-12 08:39] LABS: AUTOMATED NEUTROPHIL # 11.3 TH/MM3 (1.8-7.7); BASOPHIL % 0.3 % (0.0-2.0); EOSINOPHIL # 0.3 TH/MM3 (0-0.4); EOSINOPHIL % 2.4 % (0.0-4.0); HEMATOCRIT 28.7 % (39.0-51.0); HEMOGLOBIN 9.7 GM/DL (13.0-17.0); LYMPH % 9.2 % (9.0-44.0); LYMPHOCYTE # 1.2 TH/MM3 (1.0-4.8); MEAN CELL VOLUME 88.1 FL (80.0-100.0); MEAN CORPUSCULAR HEMOGLOBIN 29.8 PG (27.0-34.0); MEAN CORPUSCULAR HGB CONC 33.8 % (32.0-36.0); MEAN PLATELET VOLUME 7.8 FL (7.0-11.0); MONOCYTE # 0.5 TH/MM3 (0-0.9); NEUT % 84.1 % (16.0-70.0); PLATELET COUNT 152 TH/MM3 (150-450); RED BLOOD COUNT 3.25 MIL/MM3 (4.50-5.90); RED CELL DISTRIBUTION WIDTH 15.2 % (11.6-17.2); WHITE BLOOD COUNT 13.5 TH/MM3 (4.0-11.0)
[2018-04-12] MEDS: LACTULOSE SYRUP 20 GM/30 ML CUP PO SCH (09:00)
[2018-04-12] MEDS: SODIUM CHLORIDE 0.9% FLUSH 10 ML FLUSH IV FLUSH SCH ×2 (09:00→20:41)
[2018-04-12] MEDS: DOCUSATE SODIUM 50 MG/SENNA 8.6 MG TAB PO SCH ×2 (09:00→20:41)
[2018-04-12] MEDS: MUPIROCIN 2% OINT 1 APPLIC/GM SYR NASAL SCH ×2 (09:04→21:11)
[2018-04-12] MEDS: levETIRAcetam INJ 500 MG in SODIUM CHLORIDE 0.9% INJ 100 ML IV SCH ×2 (09:04→21:11)
[2018-04-12 09:15] LABS: ALBUMIN 1.3 GM/DL (3.4-5.0); BICARBONATE 23.9 MEQ/L (21.0-32.0); CALCIUM 7.3 MG/DL (8.5-10.1); CALCIUM-PROTEIN CORRECTED 8.5 MG/DL (8.5-10.1); CREATININE 1.48 MG/DL (0.60-1.30); MAGNESIUM 3.3 MG/DL (1.5-2.5); TOTAL BILIRUBIN ADULT 6.2 MG/DL (0.2-1.0); VANCOMYCIN TROUGH 26.3 MCG/ML (5.0-10.0)
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
[2018-04-12] MEDS ORDERED: DEXTROSE 50% IN WATER 50 ML SYRINGE ONE (10:08)
[2018-04-12] MEDS ORDERED: GLUCAGON 1 MG/ML VIAL IM PRN (10:30)
[2018-04-12] MEDS: DEXTROSE 50% IN WATER 50 ML VIAL(D50) IV PUSH PRN ×4 (10:46→21:15)
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
[2018-04-12] MEDS: PANTOPRAZOLE SODIUM 40 MG VIAL IV PUSH SCH (11:36)
[2018-04-12] MEDS: ACETAMINOPHEN 325 MG TAB PO PRN (13:37)
[2018-04-12] MEDS ORDERED: ROCURONIUM INJ 50 MG/5 ML VIAL ONE (14:41)
[2018-04-12] MEDS: RESP: ALBUTEROL 2.5 MG/IPRATROPIUM 0.5 MG NEB (PRN) NEB (15:46)
[2018-04-12] MEDS ORDERED: ROCURONIUM INJ 50 MG/5 ML VIAL IV PUSH ONE (16:15)
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
[2018-04-13] VITALS (18 sets, daily range): BP systolic 91–103; BP diastolic 59–65; PULSE 19–130; RESP 18–22; TEMP 100.4–101.7; O2SAT 73–100
[2018-04-13] MEDS: VANCOMYCIN 1,000 MG/NS 250 ML IV SCH ×4 (04:00→16:00)
[2018-04-13] MEDS: CHLORHEXIDINE GLUCONATE 2 % 1 PACK (2 CLOTHS)(taper/protocol) TOPICAL SCH (04:00)
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
[2018-04-13] MEDS: PIPERACIL-TAZO 3.375 GM PREMIX 50 ML IV SCH ×4 (04:54→23:40)
[2018-04-13] MEDS: ACETAMINOPHEN 325 MG TAB PO PRN ×2 (04:57→16:06)
[2018-04-13] MEDS ORDERED: FUROSEMIDE 40 MG/4 ML VIAL IV PUSH SCH (05:25)
[2018-04-13] MEDS ORDERED: FUROSEMIDE 40 MG/4 ML VIAL ONE (05:27)
[2018-04-13] MEDS: RESP: ALBUTEROL 2.5 MG/IPRATROPIUM 0.5 MG NEB (PRN) NEB ×2 (05:36→10:04)
[2018-04-13 07:34] LABS: AUTOMATED NEUTROPHIL # 12.7 TH/MM3 (1.8-7.7); BASOPHIL # 0.1 TH/MM3 (0-0.2); BASOPHIL % 0.4 % (0.0-2.0); EOSINOPHIL # 0.5 TH/MM3 (0-0.4); EOSINOPHIL % 3.4 % (0.0-4.0); HEMATOCRIT 29.7 % (39.0-51.0); HEMOGLOBIN 9.9 GM/DL (13.0-17.0); LYMPH % 7.5 % (9.0-44.0); LYMPHOCYTE # 1.1 TH/MM3 (1.0-4.8); MEAN CELL VOLUME 89.4 FL (80.0-100.0); MEAN CORPUSCULAR HEMOGLOBIN 29.8 PG (27.0-34.0); MEAN CORPUSCULAR HGB CONC 33.3 % (32.0-36.0); MEAN PLATELET VOLUME 8.3 FL (7.0-11.0); MONO % 3.4 % (0.0-8.0); MONOCYTE # 0.5 TH/MM3 (0-0.9); NEUT % 85.3 % (16.0-70.0); PLATELET COUNT 178 TH/MM3 (150-450); RED BLOOD COUNT 3.32 MIL/MM3 (4.50-5.90); RED CELL DISTRIBUTION WIDTH 15.5 % (11.6-17.2); WHITE BLOOD COUNT 14.9 TH/MM3 (4.0-11.0)
[2018-04-13 07:47] LABS: ALBUMIN 1.3 GM/DL (3.4-5.0); BICARBONATE 28.5 MEQ/L (21.0-32.0); CALCIUM 7.4 MG/DL (8.5-10.1); CALCIUM-PROTEIN CORRECTED 8.4 MG/DL (8.5-10.1); CREATININE 1.75 MG/DL (0.60-1.30); TOTAL BILIRUBIN ADULT 6.6 MG/DL (0.2-1.0); TOTAL PROTEIN 5.3 GM/DL (6.4-8.2)
[2018-04-13] MEDS: MAGNESIUM HYDROXIDE SUSP 30 ML CUP PO SCH ×2 (08:00→20:36)
[2018-04-13] MEDS: DOCUSATE SODIUM 50 MG/SENNA 8.6 MG TAB PO SCH ×2 (08:04→20:36)
[2018-04-13] MEDS: levETIRAcetam INJ 500 MG in SODIUM CHLORIDE 0.9% INJ 100 ML IV SCH (08:04)
[2018-04-13] MEDS: SODIUM CHLORIDE 0.9% FLUSH 10 ML FLUSH IV FLUSH SCH ×2 (08:04→20:36)
[2018-04-13] MEDS: MUPIROCIN 2% OINT 1 APPLIC/GM SYR NASAL SCH ×2 (08:04→21:59)
[2018-04-13] MEDS: CHLORHEXIDINE 0.12% (ORAL KIT) 15 ML CUP OROPHARYNG SCH ×2 (08:04→20:35)
[2018-04-13] MEDS: LACTULOSE SYRUP 20 GM/30 ML CUP PO SCH (08:05)
[2018-04-13] MEDS: FREE WATER G-TUBE SCH ×5 (08:05→23:40)
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
[2018-04-13] MEDS: PANTOPRAZOLE SODIUM 40 MG VIAL IV PUSH SCH (11:30)
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
[2018-04-13] MEDS: fentaNYL DRIP 250 ML IV PRN (12:50)
[2018-04-13] MEDS ORDERED: PHARMACY ORDERED LAB ONE (15:45)
[2018-04-14] VITALS (9 sets, daily range): BP systolic 105–112; BP diastolic 65–72; PULSE 58–148; RESP 18; TEMP 100.4–101.8; O2SAT 66–72
[2018-04-14] MEDS: ACETAMINOPHEN 325 MG TAB PO PRN ×2 (00:54→09:30)
[2018-04-14] MEDS: PIPERACIL-TAZO 3.375 GM PREMIX 50 ML IV SCH ×2 (05:55→10:40)
[2018-04-14] MEDS: FREE WATER G-TUBE SCH (05:55)
--- NOTE | 2018-04-14 06:09 | RADRPT ---
EXAM DATE: 04/14/2018 6:02 AM EDT AGE/SEX: 68 years / Male INDICATIONS: Shortness of breath. CLINICAL DATA: This is the patient's subsequent encounter. Patient reports that signs and symptoms h ave been present for 1 week and indicates a pain score of Nonresponsive. MEDICAL/SURGICAL HISTORY: Non-responsive. Non-responsive. COMPARISON: [facility] – [place], 04/13/2018. . FINDINGS: There is a ET tube in place with the tip 1.4 cm from the leo in the low position. The NG tube tip is directed into the stomach. There is a left subclavian line in place with the tip directed superior ly into the left internal jugular vein. This configuration is unchanged. There is fairly diffuse cons olidation. There is silhouetting of the hemidiaphragms. The heart size is normal. CONCLUSION: Diffuse consolidations which have worsened since the prior exam likely related to diffuse worsening p rocess such as diffuse infection or edema. Silhouetting of the hemidiaphragms which could be from lower lobe processes. Effusions can also be co nsidered. ET tube in the low position. Left subclavian line directed superiorly into the left internal jugular vein. Electronically signed by: Michel Schwarz MD 04/14/2018 6:08 AM EDT
[2018-04-14] MEDS: CHLORHEXIDINE 0.12% (ORAL KIT) 15 ML CUP OROPHARYNG SCH (08:00)
[2018-04-14] MEDS: LACTULOSE SYRUP 20 GM/30 ML CUP PO SCH (08:38)
[2018-04-14] MEDS: MAGNESIUM HYDROXIDE SUSP 30 ML CUP PO SCH (08:38)
[2018-04-14] MEDS: DOCUSATE SODIUM 50 MG/SENNA 8.6 MG TAB PO SCH (08:38)
[2018-04-14] MEDS: SODIUM CHLORIDE 0.9% FLUSH 10 ML FLUSH IV FLUSH SCH (08:39)
[2018-04-14] MEDS: MUPIROCIN 2% OINT 1 APPLIC/GM SYR NASAL SCH (08:39)
[2018-04-14] MEDS ORDERED: FUROSEMIDE 40 MG/4 ML VIAL IV PUSH ONE (10:00)
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
[2018-04-14] MEDS ORDERED: PHARMACY ORDERED LAB ONE (11:45)
[2018-04-14] MEDS ORDERED: VANCOMYCIN INJ 1,250 MG in SODIUM CHLOR 0.9% 250 ML INJ 250 ML IV SCH (12:00)
[2018-04-14] MEDS ORDERED: LORazepam 2 MG/ML VIAL IV PUSH PRN (12:00)
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
== END 2018-04-14 14:57 | disposition expired | DRG 955 ==
LOC: NEPI 10:56 → EDBD 12:11 → NEDA 12:11 → N03A 12:18
PROVIDERS: ADMIT Surgery; ATTEND Surgery
PROC: 5A1955Z Respiratory Ventilation, Greater than 96 Consecutive Hours (ICD-10-PCS; 2018-04-05)
PROC: 00H032Z Insertion of Monitoring Device into Brain, Percutaneous Approach (ICD-10-PCS; 2018-04-05)
PROC: 0JQ00ZZ Repair Scalp Subcutaneous Tissue and Fascia, Open Approach (ICD-10-PCS; 2018-04-05)
PROC: 0BH17EZ Insertion of Endotracheal Airway into Trachea, Via Natural or Artificial Opening (ICD-10-PCS; 2018-04-05)
PROC: 009630Z Drainage of Cerebral Ventricle with Drainage Device, Percutaneous Approach (ICD-10-PCS; principal; 2018-04-06)
DX: S06.6X9A Traumatic subarachnoid hemorrhage with loss of consciousness of unspecified duration, initial encounter (principal); S27.322A Contusion of lung, bilateral, initial encounter; S27.0XXA Traumatic pneumothorax, initial encounter; G93.6 Cerebral edema; J15.212 Pneumonia due to Methicillin resistant Staphylococcus aureus; J90 Pleural effusion, not elsewhere classified; E87.0 Hyperosmolality and hypernatremia; I31.3 Pericardial effusion (noninflammatory); N39.0 Urinary tract infection, site not specified; S01.01XA Laceration without foreign body of scalp, initial encounter; S40.811A Abrasion of right upper arm, initial encounter; S06.2X9A Diffuse traumatic brain injury with loss of consciousness of unspecified duration, initial encounter; S02.119A Unspecified fracture of occiput, initial encounter for closed fracture; S02.19XA Other fracture of base of skull, initial encounter for closed fracture; R40.2431 Glasgow coma scale score 3-8, in the field [EMT or ambulance]; B95.2 Enterococcus as the cause of diseases classified elsewhere; R00.0 Tachycardia, unspecified; Z66 Do not resuscitate; F02.80 Dementia in other diseases classified elsewhere, unspecified severity, without behavioral disturbance, psychotic disturbance, mood disturbance, and anxiety; E86.1 Hypovolemia; E83.41 Hypermagnesemia; E87.6 Hypokalemia; S40.019A Contusion of unspecified shoulder, initial encounter; R03.0 Elevated blood-pressure reading, without diagnosis of hypertension; R00.1 Bradycardia, unspecified; R06.82 Tachypnea, not elsewhere classified; V29.49XA Motorcycle driver injured in collision with other motor vehicles in traffic accident, initial encounter; Z87.891 Personal history of nicotine dependence
CPT/HCPCS: 31500; 36430; 36600; 36620; 43753; 70450; 71045; 71260; 72125; 72170; 73060; 73120; 74177; 80048; 80053; 80076; 80202; 80307; 82805; 82948; 83735; 83930; 84155; 84295; 85007; 85014; 85018; 85025; 85027; 85610; 85730; 86403; 86850; 86900; 86901; 86920; 87040; 87070; 87077; 87086; 87147; 87186; 87205; 87640; 87641; 94002; 94003; 94640; 94664; 94770; 99291; C9113; G0390; J1940; J1953; J2060; J2250; J2543; J3010; J3370; J3480; J7030; J7050; J7070; P9016; Q9967